=== PATIENT | female | born 1975 | race Caucasian/White ===

== ENCOUNTER 2024-06-15 17:38 | Emergency (ER) | payer OTHER ==
[~2024-06-15] VITALS: Ht 167.6 cm; Wt 154.2 kg
[2024-06-15 18:19] LABS: BILIRUBIN,URINE NEGATIVE (NEGATIVE); CLARITY,URINE HAZY (CLEAR); COLOR,URINE STRAW (YELLOW); GLUCOSE, URINE NEGATIVE (NEGATIVE); KETONES,URINE NEGATIVE (NEGATIVE); LEUKOCYTE ESTERASE ,URINE LARGE (NEGATIVE); NITRITE,URINE NEGATIVE (NEGATIVE); PH,URINE 6.5 (5 - 7); PROTEIN,URINE DIPSTICK NEGATIVE (NEGATIVE); URINE UROBILINOGEN 0.2 mg/dL (0.2 - 1)
[2024-06-15 18:32] LABS: BACTERIA,URINE MODERATE /HPF; RBC,URINE >50 /HPF (0-5)
[2024-06-15 18:52] VITALS: PULSE 84; RESP 17; TEMP 98
[2024-06-15] MEDS ORDERED: AMOX TR-K CLV1 EAC2 PO (19:21)
[2024-06-15] MEDS ORDERED: PYRIDIUM100 MG PO (19:21)
[2024-06-15 19:29] VITALS: BP 168/96; PULSE 84; RESP 17; TEMP 98; O2SAT 99
== END 2024-06-15 19:30 | disposition home or self-care (01) ==
LOC: ER 17:42
DX: R30.0 Dysuria (principal); N39.0 Urinary tract infection, site not specified; R31.9 Hematuria, unspecified; N20.0 Calculus of kidney; R10.30 Lower abdominal pain, unspecified; K76.0 Fatty (change of) liver, not elsewhere classified; I10 Essential (primary) hypertension; G35 Multiple sclerosis
CPT/HCPCS: 74176; 81001; 87086; 87186; 99283

== ENCOUNTER 2024-10-06 18:06 | Emergency (ER) | payer OTHER ==
[~2024-10-06] VITALS: Ht 167.6 cm; Wt 149.7 kg
[~2024-10-06 18:06] MED LIST: AMOX TR-K CLV1 EAC2 PO; PYRIDIUM100 MG PO
[2024-10-06 18:08] VITALS: PULSE 106; RESP 15; TEMP 98.7
[2024-10-06 19:28] LABS: CLARITY,URINE CLOUDY (CLEAR); COLOR,URINE YELLOW (YELLOW); LEUKOCYTE ESTERASE ,URINE MODERATE (NEGATIVE); NITRITE,URINE NEGATIVE (NEGATIVE); PH,URINE 7 (5 - 7); PREGNANCY TEST, URINE NEGATIVE (NEGATIVE)
[2024-10-06 19:29] LABS: BILIRUBIN,URINE NEGATIVE (NEGATIVE); GLUCOSE, URINE NEGATIVE (NEGATIVE); KETONES,URINE NEGATIVE (NEGATIVE); PROTEIN,URINE DIPSTICK 1+ (NEGATIVE); URINE UROBILINOGEN 0.2 mg/dL (0.2 - 1)
[2024-10-06] MEDS: ONDANSETRON HCL INJ 2MG/ML 2ML 2 MG/ML VIAL IV STA (19:32)
[2024-10-06] MEDS: SODIUM CHLORIDE 0.9% 1000ML 1,000 ML IV STA (19:32)
[2024-10-06] MEDS: KETOROLAC TROMETHAMINE 30 MG/ML VIAL IV STA (19:33)
[2024-10-06 19:39] LABS: BACTERIA,URINE FEW /HPF; EPITHELIAL CELLS,URINE RARE /LPF; WBC,URINE (MAN) >50 /HPF (0-5)
[2024-10-06 20:03] LABS: BASOPHILS # (AUTO) 0.1 (0.0-0.1); BASOPHILS % 0.7 % (0.0-1.0); EOSINOPHILS # (AUTO) 0.2 (0.0-0.4); EOSINOPHILS % 1.6 % (0.0-6.0); HEMATOCRIT 43.8 % (34.2-44.1); HEMOGLOBIN 14.1 g/dL (12.0-16.0); LYMPHOCYTES # (AUTO) 2.8 (1.0-3.2); LYMPHOCYTES % 19.1 % (18.0-39.1); MEAN CORPUSCULAR HEMOGLOBIN 27.5 pg (28-32); MEAN CORPUSCULAR HGB CONC 32.2 g/dL (31-35); MEAN CORPUSCULAR VOLUME 85.4 fL (81-99); MONOCYTES # (AUTO) 0.7 (0.2-0.8); NEUTROPHILS # (AUTO) 10.8 (2.1-6.9); NEUTROPHILS % 73.3 % (38.7-80.0); PLATELET COUNT 437 x10e3/uL (140-360); RED BLOOD COUNT 5.13 x10e6/uL (3.6-5.1); RED CELL DISTRIBUTION WIDTH 14.1 % (11.7-14.4); WHITE BLOOD COUNT 14.68 x10e3/uL (4.8-10.8)
[2024-10-06 20:24] LABS: ALBUMIN 4.1 g/dL (3.5-5.0); ALBUMIN/GLOBULIN RATIO 1.1 (0.8-2.0); BILIRUBIN,TOTAL 0.3 mg/dL (0.2-1.2); CALCIUM 9.4 mg/dL (8.4-10.2); CREATININE, SERUM 0.83 mg/dL (0.57-1.11); TOTAL PROTEIN 7.8 g/dL (6.5-8.1)
[2024-10-06] MEDS ORDERED: ULTRAM 50MG50 MG PO (21:15)
[2024-10-06] MEDS ORDERED: ONDANSETRON ODT4 MG PO (21:15)
[2024-10-06 21:31] VITALS: BP 155/88; O2SAT 100
== END 2024-10-06 21:27 | disposition home or self-care (01) ==
LOC: ER 18:19 → MERGE 18:19 → ER 21:27
DX: R30.0 Dysuria (principal); N39.0 Urinary tract infection, site not specified; R11.2 Nausea with vomiting, unspecified; M54.50 Low back pain, unspecified; N20.0 Calculus of kidney; K76.0 Fatty (change of) liver, not elsewhere classified
CPT/HCPCS: 36415; 74176; 80053; 81001; 81025; 83690; 85025; 87086; 87186; 99284; J1885; J2405; J7030

== ENCOUNTER 2024-10-08 14:00 | Emergency (ER) | payer OTHER ==
[~2024-10-08] VITALS: Ht 167.6 cm; Wt 154.2 kg
[~2024-10-08 14:00] MED LIST changes: +ONDANSETRON ODT4 MG PO; +ULTRAM 50MG50 MG PO
[2024-10-08 14:36] VITALS: PULSE 87; RESP 18; TEMP 98.8; O2SAT 98
== END 2024-10-08 15:20 | disposition home or self-care (01) ==
LOC: ER 15:05
DX: R10.9 Unspecified abdominal pain (principal); N39.0 Urinary tract infection, site not specified; N20.0 Calculus of kidney; G35 Multiple sclerosis; K76.0 Fatty (change of) liver, not elsewhere classified
CPT/HCPCS: 99282